=== PATIENT | male | born 1990 | race Caucasian/White ===

== ENCOUNTER 2016-12-29 13:32 | Outpatient (RCR) | payer BC ==
[~2016-12-29 13:32] MED LIST: HYDR-34 PO; HYDR1TAB PO
== END 2017-03-29 | disposition home or self-care (01) ==
LOC: LAB 13:32
PROVIDERS: ATTEND Obstetrics & Gynecology
DX: N46.9 Male infertility, unspecified (principal)
CPT/HCPCS: 89320